=== PATIENT | female | born 1960 | race Caucasian/White ===

== ENCOUNTER 2017-12-15 20:51 | Emergency (ER) | payer OTHER ==
[~2017-12-15] VITALS: Ht 157.5 cm; Wt 111.2 kg
[~2017-12-15 20:51] MED LIST: ADVIL200 MG PO; AVENTYL,PAMELOR50 MG PO; CYTOTEC200 MCG PO; DAILY VITAMIN1 EAC8 PO; FEOSOL45 MG PO; LINZESS145 MCG PO; ONE DAILY FOR1 EAC1 PO; PANCREATIN PO; PERCOCET 5/31 TABLET PO; STOOL SOFTENER100 MG PO; URSODIOL300 MG PO; VITAMIN D31000 UNIT PO
[2017-12-15 21:52] LABS: BASOPHIL (%) 0.2 % (0-1); EOSINOPHIL (%) 1.2 % (0-5); EOSINOPHIL COUNT 0.1 K/uL (0-0.3); HEMATOCRIT 34.3 % (36.0-46.0); HEMOGLOBIN 11.5 G/DL (11.9-15.5); IMMATURE GRANULOCYTE (%) 0.2 % (0.0-0.7); LYMPHOCYTE (%) 24.3 % (15-42); MCH 28.9 PG (29.0-34.0); MCHC 33.5 G/DL (30.0-36.0); MCV 86.2 FL (83-99); MONOCYTE (%) 5.4 % (3-12); MONOCYTE COUNT 0.5 K/uL (0-0.8); NEUTROPHIL (%) 68.7 % (45-76); NEUTROPHIL COUNT 5.7 K/uL (1.8-6.4); PLATELET COUNT 270 K/uL (156-360); RBC DIS.WIDTH-CV 12.7 % (11.8-14.6); RBC DIS.WIDTH-SD 39.8 % (39-53); RED BLOOD COUNT 3.98 M/uL (3.80-5.20); WHITE BLOOD COUNT 8.3 K/uL (4.1-10.2)
[2017-12-15 22:02] LABS: ALBUMIN 3.9 g/dL (3.2-4.8); CHLORIDE 104 mEq/L (99-109); POTASSIUM 4.2 mEq/L (3.7-5.4); SODIUM 139 mEq/L (136-147)
[2017-12-15 22:04] LABS: GLUCOSE 91 mg/dL (70-99)
[2017-12-15 22:05] LABS: TOTAL PROTEIN 7.2 g/dL (6.4-8.3)
[2017-12-15 22:06] LABS: TOTAL BILIRUBIN 0.5 mg/dL (0.0-1.0)
[2017-12-15 22:08] LABS: ALKALINE PHOSPHATASE 153 IU/L (3-129); CREATININE 0.8 mg/dL (0.6-1.3); GFR ESTIMATE (CALCULATED) > 59 mL/min/
[2017-12-15 22:09] LABS: UREA NITROGEN (BUN) 13 mg/dL (9-23)
[2017-12-15 22:10] LABS: AST (GOT) 22 IU/L (2-34)
[2017-12-15 22:11] LABS: ALT (GPT) 16 IU/L (3-49); LIPASE 5 U/L (1.0-51.0)
[2017-12-15 22:13] LABS: TROP-I INTERPRETATION NEGATIVE; TROPONIN-I < 0.01 ng/mL (0.0-0.30)
[2017-12-16 01:09] LABS: TROP-I INTERPRETATION NEGATIVE; TROPONIN-I < 0.01 ng/mL (0.0-0.30)
[2017-12-16 04:45] VITALS: BP 103/77
== END 2017-12-16 04:45 | disposition home or self-care (01) ==
LOC: EME 20:51
PROVIDERS: Emergency Medicine
DX: K85.90 Acute pancreatitis without necrosis or infection, unspecified (principal); K86.1 Other chronic pancreatitis; K58.9 Irritable bowel syndrome, unspecified; Z86.73 Personal history of transient ischemic attack (TIA), and cerebral infarction without residual deficits; Z90.49 Acquired absence of other specified parts of digestive tract
CPT/HCPCS: 71046; 71275; 74177; 80053; 83690; 84484; 85025; 85379; 93005; 99281; 99285; J7030